=== PATIENT | male | born 1970 | race Caucasian/White ===

== ENCOUNTER → 2020-08-06 | Outpatient (CLI) | payer BC ==
--- NOTE | 2020-08-06 18:23 | CONS ---
CONSULTATION DATE OF SERVICE: 08/06/2020 This 50-year-old gentleman has been evaluated in the sleep center for possible obstructive sleep apnea-hypopnea syndrome. HISTORY OF PRESENT ILLNESS/SLEEP-WAKE EVALUATION: Patient's usual sleep schedule on working days is from 9 or 10 p.m. until 3 a.m. and on weekends from around 9 or 10 p.m. until 6 a.m. No problems with falling asleep, although he has a TV set in the bedroom. He sleeps in different positions. According to his , he has extremely loud snoring and witnessed episodes of stopped breathing during sleep. During the day, the patient feels sleepy. [place] Sleepiness Scale is increased to 12. He may take naps in the evening during the week and afternoon during weekends. Usually he feels refreshed after naps. No vivid dreams during naps. No history of hypnagogic hallucinations, sleep paralysis or cataplexy. PAST MEDICAL HISTORY: Positive for hypertension and a history of thyroid problems when he was young. MEDICATIONS: Lisinopril 10 mg once a day. SOCIAL HISTORY: Positive for smoking 1-1/2 packs a day for 29 years. Alcohol consumption rarely. FAMILY HISTORY: Positive for hypertension, heart problems. REVIEW OF SYSTEMS: Loud snoring, awakenings from sleep with nocturia, sleepiness during the day. PHYSICAL EXAMINATION: GENERAL: A pleasant gentleman without distress. VITAL SIGNS: BP 134/87, HR 84, RR 15, height 5 feet 10-1/2 inches, weight 260, BMI 36.7, temperature 97.9, oxygen saturation at room air 97%. HEENT: PERRLA, EOMI. Evaluation of oropharynx showed tongue protrudes midline. Low position of soft palate. Mallampati III to IV. NECK: Supple. No JVD. Thyroid is not palpable. Neck is wide and measures 17 inches in circumference. LUNGS: Clear to percussion and to auscultation. Good air exchange. No wheezing or rhonchi. HEART: S1, S2 regular. No murmurs, gallops or rubs. ABDOMEN: Slightly obese. EXTREMITIES: No clubbing or cyanosis. EDIPHONE OPERATOR: Awake, alert, and oriented X3. Cranial nerves 2 to 7 intact. There is no fasciculation or atrophy. noted. No focal deficits observed. IMPRESSION: 1. Loud snoring, witnessed episodes of stopped breathing during sleep, small oropharyngeal air space, wide neck, excessive daytime sleepiness, [place] Sleepiness Scale 12; obstructive sleep apnea-hypopnea syndrome. 2. Obesity. BMI 36.7. 3. Hypertension. 4. Smoker for about 45 pack/years. PLAN: 1. Polysomnography for evaluation of patient's breathing during sleep. 2. CPAP/BiPAP titration if sleep study confirms obstructive sleep apnea-hypopnea syndrome. 3. Preferable position during sleep on the side. 4. No driving if patient feels any sleepiness. 5. I will see patient for follow up visit to explain results of testing and following plan. 6. I discussed with the patient the necessity to consider a smoking cessation program. Thank you very much for referring this patient for consultation. Sincerely, Inocente Vegas MD, PhD, FAASM Diplomat of [employer] Dispatcher [facility] [place] MMODL / ARABELLAN: [id number] /
== END | disposition home or self-care (01) ==
LOC: SLEEP 16:43
PROVIDERS: ATTEND Internal Medicine
DX: G47.33 Obstructive sleep apnea (adult) (pediatric) (principal); I10 Essential (primary) hypertension; F17.210 Nicotine dependence, cigarettes, uncomplicated; E66.9 Obesity, unspecified; Z68.36 Body mass index [BMI] 36.0-36.9, adult; Z79.3 Long term (current) use of hormonal contraceptives
CPT/HCPCS: 99211